=== PATIENT | female | born 1980 | race Caucasian/White ===

== ENCOUNTER → 2018-02-01 19:32 | Outpatient (CLI) | payer BC ==
[2013-10-26 09:49] VITALS: BMI 41.8
[~2018-02-01 19:32] MED LIST: BAYER CHEWABLE81 MG PO; BUSPAR10 MG PO; DIABETA2.5 MG OR; DIABETA2.5 MG PO; IBUPROFEN200 MG OR; LOVENOX40 MG/0.4 SQ; MOTRIN600 MG PO; PERCOCET 5-3251 TAB PO; PERCOCET 5/3251 TA1 PO; PRENATAL COMPLE1 TAB PO; PRILOSEC20 MG PO; TRANDATE100 MG PO; XANAX0.25 MG PO; ZOLOFT100 MG PO
== END | disposition home or self-care (01) ==
LOC: D.MAMMO 13:45
DX: Z12.31 Encounter for screening mammogram for malignant neoplasm of breast (principal)

== ENCOUNTER 2020-06-24 11:02 | Day surgery (SDC) | payer BC ==
[~2020-06-24] VITALS: Ht 154.9 cm; Wt 113.2 kg
[2020-06-24 11:37] LABS: HEMATOCRIT 40.7 % (36.0-48.0); HEMOGLOBIN 13.2 g/dL (12-16); MCH 28.1 pg (26.0-34.0); MCHC 32.4 g/dL (31.0-37.0); MCV 86.6 fL (80.0-100.0); MEAN PLATELET VOLUME 8.5 fL (7.4-10.4); RBC 4.7 10x6/uL (4.00-5.40); RDW 12.8 % (11.5-14.5); WBC 6.5 10x3/uL (4.8-10.8)
[2020-06-24 11:40] LABS: INR 1.07 (0.85-1.17); PROTIME 12.9 SECONDS (11.6-15.0)
[2020-06-24 11:41] LABS: APTT 29.5 SECONDS (22.8-39.4)
[2020-06-24 11:46] LABS: HCG SERUM NEGATIVE (NEGATIVE)
[2020-06-24] MEDS ORDERED: FISH OIL 1,0001 CA1 PO (11:46)
[2020-06-24] MEDS ORDERED: VITAMIN D-32000 UNIT PO (11:46)
[2020-06-24 12:05] VITALS: BP 122/83; Ht 154.9 cm; Wt 113.2 kg
--- NOTE | 2020-06-24 13:19 | NUR ---
1317 DR. GALLO WOODARD.
--- NOTE | 2020-06-24 13:24 | NUR ---
1324 RT HERE FOR BREATHING TREATMENT.
--- NOTE | 2020-06-24 13:35 | NUR ---
1985 ANTWAN MCKINLEY SERVED
--- NOTE | 2020-06-24 14:24 | NUR ---
1415 PT'S SPOUSE HAS RETURNED, TO CAR VIA .
--- NOTE | 2020-06-24 17:16 | OP ---
PATIENT NAME: MAGNOLIA CARRILLO MEDICAL RECORD: [id number] :78 LOCATION:[facility] ADMISSION DATE: SURGEON: DOT HOLDER DO DATE OF OPERATION: 06/24/2020 PROCEDURE: EGD with biopsies. INDICATION FOR PROCEDURE: History of White's esophagus and GERD. SCOPE: [employer] video gastroscope. MEDICATIONS: Propofol 400 mg IV per anesthesia. ESTIMATED BLOOD LOSS: Minimal. COMPLICATIONS: None. FINDINGS AND DESCRIPTION OF PROCEDURE: Informed consent was given. The patient was made comfortable with the above medication. After reaching an adequate level of sedation by slow IV push, the patient was placed on her left side. The endoscope was advanced under direct visualization through the mouth to the second portion of the duodenum with ease. Esophagus appeared normal down to the GE junction. At the GE junction, there were minor changes consistent with LA class A reflux-induced esophagitis. No obvious White's mucosa was present. Biopsies were taken at the squamocolumnar junction based on the history of White's esophagus. The endoscope was advanced beyond the GE junction into the stomach and retroflexed to view the cardia, which appeared normal. In the stomach, there was evidence of prior surgical procedure with a blind pouch and 3 to 4 openings along the wall of the stomach, which led into the proper stomach. The endoscope was able to traverse one of the sites into the stomach and retroflexion was performed at this point with visualization of a fundic gland polyp, which was biopsied. There were a few scattered polyps throughout the body of that stomach leading down to the antrum. The mucosa throughout the stomach appeared normal. Cold forceps biopsies were taken from the antrum and incisura to submit for histopathology and to rule out the presence of H. pylori. The endoscope was advanced beyond the pylorus into the duodenum, which appeared normal to the second portion. The endoscope was then withdrawn from the patient. The patient tolerated the procedure well and there were no complications. IMPRESSION: 1. LA class A reflux-induced esophagitis. 2. Evidence of prior surgery involving the stomach. 3. Multiple benign-appearing gastric polyps consistent with fundic gland polyps. Biopsies taken. PLAN AND RECOMMENDATIONS: 1. Discharge home when recovery parameters are met. 2. Follow up biopsy specimen results. 3. GERD diet and reflux precautions. 4. Consider repeat EGD in 2 years for history of White's esophagus. TRANSINT:[id number] Voice Confirmation ID: [id number] DOCUMENT ID: [id number] OPERATIVE REPORT [id number] MAGNOLIA CARRILLO,DOT Salcedo DO at 1716 CC: [id number] DICTATION DATE: 06/24/20 1311 BUSINESS APPLICATIONS ANALYST: 06/24/20 1632 [facility] 06/24/20 [id number] [place] [id number]
== END 2020-06-24 14:15 | disposition home or self-care (01) ==
LOC: D.OPS 11:02
PROVIDERS: Anesthesiology; ATTEND Internal Medicine Gastroenterology
DX: K22.70 Barrett's esophagus without dysplasia (principal); K21.00 Gastro-esophageal reflux disease with esophagitis, without bleeding; K31.7 Polyp of stomach and duodenum; K76.9 Liver disease, unspecified; R93.89 Abnormal findings on diagnostic imaging of other specified body structures; R10.11 Right upper quadrant pain

== ENCOUNTER → 2020-08-20 09:23 | Outpatient (CLI) | payer BC ==
[2020-06-24 12:05] VITALS: BMI 47.1
[~2020-08-20 09:23] MED LIST changes: +FISH OIL 1,0001 CA1 PO; +VITAMIN D-32000 UNIT PO
== END | disposition home or self-care (01) ==
LOC: D.MRI 09:23
PROVIDERS: ATTEND Internal Medicine Gastroenterology
DX: R93.3 Abnormal findings on diagnostic imaging of other parts of digestive tract (principal); K76.9 Liver disease, unspecified; Z01.812 Encounter for preprocedural laboratory examination